=== PATIENT | female | born 1995 | race Caucasian/White ===

== ENCOUNTER 2017-08-19 22:18 | Emergency (ER) | payer OTHER ==
[~2017-08-19] VITALS: Ht 170.2 cm; Wt 90.7 kg
[2017-08-19] MEDS ORDERED: CELEXA40 MG PO (22:24)
[2017-08-19] MEDS ORDERED: LATUDA20 MG PO (22:25)
[2017-08-19] MEDS ORDERED: PENICILLIN V P500 MG PO (22:52)
[2017-08-19] MEDS ORDERED: MOBIC15 MG PO (22:52)
== END 2017-08-19 23:12 | disposition home or self-care (01) ==
LOC: ER 22:18
DX: K02.9 Dental caries, unspecified (principal)